=== PATIENT | male | born 1940 | race Caucasian/White ===

== ENCOUNTER 2016-11-15 05:17 | Inpatient (IN) | payer MEDICARE, BC ==
--- NOTE | 2016-11-14 09:40 | PREOPHP ---
DATE OF ADMISSION: 11/15/2016 REFERRING PHYSICIAN: Dr. Hoang Thank you, Dr. Hoang for asking me to see this patient in medical consultation. INTRODUCTION: This is a 75-year-old male scheduled for L1 through L5 diskectomy secondary to severe lumbar spine degenerative disk disease. PAST MEDICAL HISTORY: Significant for history of diabetes mellitus and history of hyperlipidemia and history of prostate carcinoma and a history of degenerative disease and a history of GERD. PAST SURGICAL HISTORY: 1. Significant for L4-L5 diskectomy in 2004. 2. Bilateral inguinal hernia repair. 3. Prostatectomy. 4. Insertion of artificial ureteral sphincter. MEDICATIONS: 1. Simvastatin 20 mg daily. 2. Janumet 50/500 twice a day. 3. Xanax 0.5 p.r.n. ALLERGIES: NO DRUG ALLERGIES. SOCIAL HISTORY: Used to smoke a pack per day for 40 years. Quit in 2005. Alcohol : None. Drugs: None. : 1 child, good health. FAMILY HISTORY: Father at age of 93. Mother at age of 79. She has rheumatic fever and heart problem. One sibling in good health. REVIEW OF SYSTEMS: GENERAL: Denies fever, chills, gaining or losing weight. EYES: Negative for double, blurred vision or eye pain. ENT: Negative for sore throat, ear pain or other congestion. CARDIOVASCULAR: Negative for chest pain, heart palpitation. RESPIRATORY: Negative for shortness of breath, cough, hemoptysis. GASTROINTESTINAL: Negative for nausea, vomiting, constipation, diarrhea, abdominal pain. The patient has history of erosive esophagitis in the past. GENITOURINARY: Negative for dysuria or frequency. The patient has artificial ureteral sphincter status post prostatectomy. HEMATOLOGY: Negative history of easy bruising or bleeding. NEUROLOGIC: Patient denies any history of numbness, tingling, weakness. The patient has history of anxiety. PHYSICAL EXAMINATION: GENERAL: Well-developed, well-nourished male in no acute distress. VITAL SIGNS: Temperature 97.4, heart rate 67, respiratory rate 16, blood pressure 120/70. HEAD: Atraumatic, normocephalic. SKIN: No rash, no lesion, no bruises, no hematoma. NECK: Supple. No lymphadenopathy, no thyromegaly. Negative for jugular venous distention. Negative for carotid bruits. HEENT: Pupils equal, round and react to light and accommodation. Extraocular movements intact. No edema. Ears: Normal tympanic membranes bilaterally. Nose clear. Throat: No erythema, no exudate. HEART: Regular rate and rhythm. Normal S1, normal S2. No S3, no S4, no murmur, no gallops. LUNGS: Clear to auscultation bilaterally. No rash, no wheezes. ABDOMEN: Soft, nontender, nondistended. Positive for bowel sounds. Negative for hepatosplenomegaly. EXTREMITIES: No cyanosis, clubbing or edema. NEUROLOGIC: The patient is alert and oriented x3. Cranial nerves II through VII grossly intact. No motor and sensory deficit. Deep tendon reflexes 2+ bilaterally. LABORATORY DATA: WBC count 10.6, hemoglobin 15.5, hematocrit 45.3, platelets 290. PT 11.3, INR 1.06. PTT 29.3, sodium 138, potassium 5.3. Chloride 104, bicarb 25, BUN 19, creatinine 1.0. Blood sugar 90. AST 18, ALT 22, alkaline phosphatase 75, total bilirubin 0.6. Urinalysis negative for WBC, negative for RBC. Chest x-ray no cardiomegaly. No infiltrates. EKG showed sinus rhythm at rate of 67. No acute ST-T changes. IMPRESSION: 1. A 75-year-old male with diffuse lumbar spine degenerative disk disease. Scheduled for L1 through L5 and diskectomy. 2. History of prostate carcinoma status post prostatectomy. 3. History of artificial ureteral sphincter insertion and history of diabetes mellitus well controlled. 4. History of hyperlipidemia. 5. History of erosive esophagitis in the past. 6. History of tobacco abuse in the past. 7. History of mild anxiety. RECOMMENDATIONS: According to the [employer] the patient possesses mild to moderate risk of perioperative cardiovascular complications. The patient was advised not to take aspirin or nonsteroidal antiinflammatory medications prior to the surgery. The patient needs qualified nurse to insert Madden catheter before the surgery due to presence of artificial sphincter. The patient also has had several episodes of intractable nausea and vomiting postoperatively, which should be addressed by anesthesiologist postoperatively. At this time I will clear this patient for upcoming surgery. DR. YOSI VALDES DICTATING FOR DR. KELSI HOANG. Dictated By: KELSI BLACK/ZACKARY Conf#: [id number] DID#: [id number] [facility]
[2016-11-14 09:56] VITALS: BMI 23.2
[~2016-11-15] VITALS: Ht 182.9 cm; Wt 79.9 kg
[2016-11-15] VITALS (33 sets, daily range): BP systolic 93–138; BP diastolic 58–83; PULSE 56–105; RESP 7–22; Ht 182.9 cm; Wt 79.9 kg
[~2016-11-15 05:17] MED LIST: CEFAZOLIN 2 GM/50 ML (PMX) 50 ML IVPB ONE; LACTATED RINGER'S 1,000 ML IV* SCH
[2016-11-15] MEDS ORDERED: SIMV40TA7 PO (05:40)
[2016-11-15] MEDS ORDERED: ALPR0.5T6 PO (05:40)
[2016-11-15] MEDS ORDERED: SITA1TAB PO (05:40)
[2016-11-15] MEDS ORDERED: POLYMYXIN/BACITRACIN 1L IRRIG ONE (06:40)
[2016-11-15] MEDS ORDERED: BUPIVACAINE 0.25% (MPF) 10 ML 10 ML VIAL ONE (06:40)
[2016-11-15] MEDS ORDERED: ROCURONIUM 50 MG INJ ONE ×2 (07:00→07:47)
[2016-11-15] MEDS ORDERED: SUCCINYLCHOLINE CHLORIDE 100 MG/5 ML SYG IV ONE ×2 (07:00→07:47)
--- NOTE | 2016-11-15 07:01 | HPN ---
Date/Time of Note Date/Time of Note DATE: 11/15/16 TIME: 07:01 Interval H&P Admission Note Pt. seen H&P reviewed: No system changes KELSI MARTIN MD Nov 15, 2016 07:01
[2016-11-15] MEDS ORDERED: METOCLOPRAMIDE 10 MG INJ ONE (07:11)
[2016-11-15] MEDS ORDERED: LIDOCAINE 2% (SDV) 5 ML INJ ONE (07:11)
[2016-11-15] MEDS ORDERED: ONDANSETRON 4 MG INJ ONE (07:11)
[2016-11-15] MEDS ORDERED: PROPOFOL 20 ML ONE (07:11)
[2016-11-15] MEDS ORDERED: MIDAZOLAM 1 MG/ML 2 ML INJ ONE (07:11)
[2016-11-15] MEDS ORDERED: FAMOTIDINE 20 MG INJ ONE (07:12)
[2016-11-15] MEDS ORDERED: FENTAnyl 50 MCG/ML VIAL ONE (07:19)
[2016-11-15] MEDS ORDERED: LABETALOL HCL 20MG INJ ONE (08:07)
[2016-11-15] MEDS ORDERED: PROPOFOL 100 ML ONE ×3 (09:14→09:15)
[2016-11-15] MEDS ORDERED: THROMBIN 5000 UNIT VIAL ONE (09:19)
[2016-11-15] MEDS ORDERED: GELATIN SIZE 100 SPONGE ONE (09:19)
--- NOTE | 2016-11-15 10:03 | RADRPT ---
PROCEDURE: Intraoperative XR. CLINICAL INDICATION: Intraoperative radiograph during L1-L5 decompression/laminectomy. TECHNIQUE: Spot intraoperative lateral lumbar x-ray images were provided. The images were reviewe d on a high-resolution PACS workstation. COMPARISON: None available FINDINGS: Spot intraoperative lateral lumbar views were provided during L1-L5 laminectomy. The images demonst rate instrumentation from L2-L5. IMPRESSION: 1. Spot intraoperative lateral lumbar view during L1-L5 laminectomy were provided. 2. Please see operative report of the same day for further information. RPTAT: DD .Morgan Yepez MD, Date Time Electronically viewed and signed by .Morgan Yepez MD, on 11/15/2016 10:03 .S/
[2016-11-15] MEDS ORDERED: THROMBIN(HUM PLAS)/FIBRINOG/CA 5 ML VIAL TOP ONE (10:27)
[2016-11-15] MEDS ORDERED: FENTAnyl 50 MCG/ML VIAL IV PRN (10:30)
[2016-11-15] MEDS ORDERED: PROCHLORPERAZINE 10 MG INJ IV PRN (10:30)
[2016-11-15] MEDS ORDERED: DIPHENHYDRAMINE 50 MG INJ IV PRN (10:30)
[2016-11-15] MEDS ORDERED: ONDANSETRON 4 MG INJ IV PRN (10:30)
[2016-11-15] MEDS ORDERED: MEPERIDINE 25 MG INJ IV PRN (10:30)
[2016-11-15] MEDS ORDERED: HYDROmorphONE (0.2 MG/ML) 10ML SYG IV PRN (10:30)
[2016-11-15] MEDS ORDERED: HYDROmorphONE 2 MG/ML SYG ONE (10:42)
[2016-11-15] MEDS ORDERED: DEXTROSE 5%-0.45% NACL 1,000 ML IV SCH (11:28)
[2016-11-15] MEDS ORDERED: ACETAMINOPHEN 325 MG TAB PO PRN (11:30)
[2016-11-15] MEDS ORDERED: HYDROmorphONE 0.2 MG/ML PCA IV SCH (11:30)
[2016-11-15] MEDS ORDERED: BETHANECHOL 25 MG TAB PO PRN (11:30)
[2016-11-15] MEDS ORDERED: ZOLPIDEM 5 MG TAB PO PRN (11:30)
[2016-11-15] MEDS ORDERED: NACL 0.9% 3 ML SYG IV SCH (11:30)
[2016-11-15] MEDS ORDERED: DIAZEPAM 5 MG TAB PO PRN (11:30)
[2016-11-15] MEDS ORDERED: TRIMETHOBENZAMIDE 100 MG/ML VIAL IM PRN (11:30)
[2016-11-15] MEDS ORDERED: DIAZEPAM 5 MG/ML SYG IM PRN (11:30)
[2016-11-15] MEDS ORDERED: NALOXONE (0.4 MG/ML) INJ IV PRN (11:30)
[2016-11-15] MEDS ORDERED: HYDROCODONE/APAP (5/325) TAB PO PRN (11:30)
[2016-11-15] MEDS ORDERED: DIPHENHYDRAMINE 50 MG CAP PO PRN (11:30)
[2016-11-15] MEDS ORDERED: PROCHLORPERAZINE 10 MG TAB PO PRN (11:30)
[2016-11-15] MEDS ORDERED: CEPASTAT LOZENGE MT PRN (11:30)
--- NOTE | 2016-11-15 11:41 | OPPN ---
Date/Time of Note Date/Time of Note DATE: 11/15/16 TIME: 11:35 Operative/Procedure Note Pre-Operative Diagnosis Lumbar spinal stenosis at L2-L3-L4 and L5 Status post microdiscectomy L5-S1 on the left with severe foraminal stenosis Post-Operative Diagnosis Same Procedure Central decompressive laminectomy at L2-L3-L4 and L5 Baxano transforaminal root decompression L5 on the left Medial facetectomy and foraminotomy L2-3 L3-4 L4-5 and L5-S1 Revision of scar (14 cm) Lateral localizing lumbar radiograph Intraoperative nerve monitoring (4 hours) Surgeon: KELSI MARTIN MD Slat Basket Maker: KEVIN ARNETT Anesthesiologist: KEV HALL MD Findings Multilevel spinal stenosis at L2-L3-L4 and L5 Blood Usage/Administration None Implants/Grafts: Not applicable Estimated blood loss: 100 - 150 ml's Drains 2 medium Hemovac drains employed Specimens Spinous processes of L2-L3-L4 and L5 Complications: None Anesthesia type: general KELSI MARTIN MD Nov 15, 2016 11:41
[2016-11-15] MEDS ORDERED: HYDROmorphONE 0.2 MG/ML PCA ONE (11:51)
[2016-11-15] MEDS: CEFAZOLIN 1 GM/50 ML (PMX) 50 ML IVPB SCH ×2 (12:15→18:23)
--- NOTE | 2016-11-15 12:31 | OPR ---
DATE OF OPERATION: 11/15/2016 PREOPERATIVE DIAGNOSES: 1. 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 2. Postsurgical changes at L5 on the left. POSTOPERATIVE DIAGNOSES: 1. 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 2. Postsurgical changes at L5 on the left. OPERATION PERFORMED: 1. Central decompressive laminectomy L2. 2. Central decompressive laminectomy at L3. 3. Central decompressive laminectomy at L4. 4. Central decompressive laminectomy at L5 (redo). 5. Baxano transforaminal root decompression L5 on the left. 6. Medial facetectomy and foraminotomy, L2-3, L3-4, L4-5, L5-S1 bilaterally. 7. Revision of scar (14 cm). 8. Lateral localized lumbar radiograph. 9. Intraoperative nerve monitoring (4 hours). SURGEON: Ruiz Hoang MD ENGINEERING DESIGNER: RALPH Sexton ANESTHESIA: General endotracheal. ANESTHESIOLOGIST: Yolanda Apodaca MD ESTIMATED BLOOD LOSS: 100 mL-none replaced. DRAINS: Two medium Hemovac drains employed. COMPLICATIONS: None. PERTINENT HISTORY AND PHYSICAL: This is a 75-year-old male with severe back and bilateral leg pain which has been unrelieved by conservative management. He has undergone a number of diagnostic studi es which demonstrated multilevel spinal stenosis and postsurgical changes at L5 on the left. Treatm ent options were discussed with the patient, who elected to proceed with surgery. OPERATIVE FINDINGS AT SURGERY: Multilevel severe spinal stenosis from L2-L5 was confirmed. Baselin e intraoperative nerve monitoring revealed a decrease in the L2 potentials bilaterally of 10%, the L 3 potentials bilaterally of 40%, the L4 potentials bilaterally of 60%, the left L5 potential of 40%, the right L5 potential of 50%, the left S1 potential of 30% and the right S1 potential of 20%. The se all returned to normal at the completion of surgery. OPERATIVE PROCEDURE: With the patient in supine position after satisfactory induction of general en dotracheal anesthesia by Dr. Apodaca, the patient was turned to the prone kneeling position on the [facility] frame. All pressure points were carefully padded. The back was prepped and draped in usual st erile fashion. Athrombic pumps were applied to the legs below the knees to prevent venous stasis du ring and after procedure. An indwelling Madden catheter was also placed preoperatively by Dr. Tom Hodge as the patient has an artificial sphincter from previous prostate surgery. A 14 cm incisio n then carried out midline from L2 to the sacrum through skin and subcutaneous tissue to the deep fa scia using the previous scar at L5 as an anatomic landmark. Superficial retractors were placed and hemostasis secured with electrocautery, 0.25% Marcaine without epinephrine was used to infiltrate th e skin margins for postoperative analgesia. The fascia was incised in midline with a hot knife and a bilateral subperiosteal dissection carried out from L2 to the sacrum. Deep retractors were placed and deep hemostasis secured with electrocautery. An intraoperative radiograph was taken with Koche r clamps placed in what was felt to be the spinous process of L2, L3, L4, and L5. This was confirme d on the radiograph. A central decompressive laminectomy at L2, L3, L4 and L5 (redo) then carried o ut using a Luis right-angle bone rongeur, Leksell rongeur, Kerrison punches and curettes. The op erating microscope was then moved into place. Medial facetectomy and foraminotomy was then carried out using small hand osteotome, mallet, Kerrison punches and curettes at L2-3, L3-4, L4-5, and L5-S1 bilaterally. At this point, there was still some distal foraminal stenosis at L5 on the left, and the Baxano instrumentation was brought onto the field. The Ipsi probe was placed into the L5 forame n, and the guidewire passed in the usual fashion. The neuro probe was then used to isolate the exit ing L5 nerve root. With this having been accomplished, a 7.5 mm Baxano rasp was then used to enlarg e the posterior aspect of the foramen. The instrumentation was withdrawn. The foramen was flooded with 20 mL of irrigating solution and hemostasis secured with bipolar electrocautery on low setting. The anesthesiologist was asked to perform a Valsalva maneuver at 40 mmHg and no spinal fluid leak was noted. There was; however, small bubble on the dura at L5 on the left where the previous scar t issue had been peeled off of the dura. Although there was no CSF leakage, it was elected to patch t he dural bubble with a 1-inch square of Duragen Plus, covered with Evicel fibrin glue. The wound wa s then closed in layers over 2 medium Hemovac drains, one below the fascia, one above the fascia usi ng #1 Vicryl [id number]-mh-[id number] approximating sutures in deep paralumbar musculature and deep fascia of back, 2-0 Vicryl subcutaneous approximating sutures using #1 Stratafix sutures on the deep paralumb ar musculature and deep fascia of back, 2-0 Stratafix sutures in subcu tissue, and a 4-0 Vicryl subc uticular cosmetic closing suture on the skin, Dermabond and sterile compressive dressings were appli ed. Patient having tolerated procedure well, was then turned to supine position onto his bed and ex tubated by Dr. Apodaca. He was transported to recovery room in satisfactory condition. At the conclus ion of the procedure sponge, instrument and needle counts were all correct. NEED FOR PRODUCT BLENDING SUPERVISOR: During this spinal surgical procedure, my program assistant was used to retrac t and protect the spinal nerves and dural sac. My program assistant also employed the suction catheters to e vacuate blood from the surgical field to improve visualization of the neural structures. The assista nt was medically necessary to facilitate the completion of the surgery in a safe and expeditious man ner. State of [place] regulations, as well as hospital bylaws, preclude the use of non-licensed [facility] care personnel such as operating room technicians, to perform these functions. Throughout the procedure, neural monitoring was carried out by Zapproved Neuroem[employer] including EMG, SSEP and MEP monitoring of the L2, L3, L4, L5, and S1 nerve roots along with spinal c ord potentials. These were interpreted by neurologist employed by [employer]. Dictated By: RUIZ HOANG MD TM/NTS Conf#: [id number] DID#: [id number] CC: ALEXA GATES MD; TOM HODGE MD;*[facility]*
--- NOTE | 2016-11-15 13:16 | CONS ---
DATE OF ADMISSION: 11/15/2016 DATE OF CONSULTATION: MEDICAL CONSULTATION Thank you, Dr. Hoang, for asking me to participate in medical management of this patient. REASON FOR CONSULTATION: To manage the patient's diabetes mellitus and hyperlipidemia. HISTORY OF PRESENT ILLNESS: This 75-year-old man is now in the recovery room after undergoing a lum bar spine surgery by Dr. Hoang. The patient is awake and alert. The patient answers questions a ppropriately. The patient's is at his bedside and is also able to give some history. The ge ent was having low back pain and bilateral hip pain. The patient saw Dr. Hoang for consultation and was found to have advanced degenerative disk disease at the L2-L3 and L5-S1 levels. The patient underwent surgery today by Dr. Hoang, and he had a surgery to relieve multilevel spinal stenosis from L2-L5. He underwent a central decompressive laminectomy at L2, L3, L4, and L5. The patient d id have a prior L4-L5 diskectomy in 2004. PAST MEDICAL HISTORY: Remarkable for type 2 diabetes mellitus, hyperlipidemia, prostate cancer stat us post resection, degenerative disk disease, gastroesophageal reflux disease. PAST SURGICAL HISTORY: L4-L5 diskectomy in 2004, bilateral inguinal hernia repair, prostatectomy, i nsertion of an artificial ureteral sphincter. He did have an abdominal surgery several months ago f or what turned out to be a benign tumor in the gallbladder area. CURRENT MEDICATIONS: 1. Simvastatin 40 mg a day. 2. Janumet 50/500 twice a day. 3. Xanax 0.5 mg p.o. at bedtime p.r.n. sleep. ALLERGIES: THE PATIENT HAS NO KNOWN DRUG ALLERGIES. SOCIAL HISTORY: The patient smoked for 40 years, but quit in 2005. He does not drink alcohol, does not use illicit drugs. The patient is with 1 child. FAMILY HISTORY: Both parents are . Father at age 93. Mother at age 79. She had a history of rheumatic fever and heart disease. He has one sibling in good health. PHYSICAL EXAMINATION: GENERAL: At this time reveals a well-developed man who is awake and alert. He seems comfortable. VITAL SIGNS: Pulse of 84, respirations are 8, blood pressure 111/66, O2 saturation 95% on 3 L nasal cannula. HEENT: Head normocephalic. EYES: Extraocular muscles intact. NOSE AND MOUTH: Normal. NECK: Supple. No neck vein distention. LUNGS: Clear to auscultation. HEART: Regular rhythm. No murmurs, gallops, or rubs. ABDOMEN: Soft, nontender. EXTREMITIES: No peripheral edema. IMPRESSION: This patient is now in the recovery room after undergoing a lumbar spine surgery. He i s awake and alert and his pain is controlled on current medications. I will manage the patient's di abetes mellitus, hyperlipidemia, gastroesophageal reflux disease. PLAN: 1. Resume some routine medications. 2. Check labs in the morning. 3. Sliding scale insulin coverage for today. Postop lumbar spine surgery protocol. 4. I will follow the patient along with you. Dictated By: ALEXA GATES MD, ND/ZACKARY Conf#: [id number] DID#: [id number]
[2016-11-15] MEDS ORDERED: DEXTROSE 50% 50 ML SYRINGE IV PRN ×2 (13:30)
[2016-11-15] MEDS ORDERED: GLUCAGON 1 MG INJ IM PRN (13:30)
[2016-11-15] MEDS ORDERED: GLUCOSE GEL 15 GRAM TUBE PO PRN ×2 (13:30)
[2016-11-15] MEDS ORDERED: GLUCOSE GEL 15 GRAM TUBE BUCCAL PRN (13:30)
--- NOTE | 2016-11-15 14:07 | CONS ---
DATE OF ADMISSION: 11/15/2016 DATE OF CONSULTATION: 11/15/2016 TYPE OF CONSULTATION: Urological. REQUESTING PHYSICIAN: Dr. Hoang. Dear Dr. Hoang, thank you for asking me to see this patient in urological consultation. HISTORY OF PRESENT ILLNESS: As you know, he is a 75-year-old male who had a history of prostate can cer, underwent a radical prostatectomy and because of that, he had urinary incontinence and had an a rtificial urinary sphincter inserted. The patient is scheduled to have surgery today and needed to an indwelling Madden catheter. A urological consultation was requested to make sure that the sphinct er is deactivated properly and insertion of a catheter and trying to avoid any urethral injury. The patient was seen in the operating room and the sphincter was deactivated and then a 16-[place] Madden catheter was inserted without any problem and clear urine was drained. PAST MEDICAL HISTORY: The patient's past other significant medical history included a history of ty pe 2 diabetes, hyperlipidemia, degenerative disk disease and gastroesophageal reflux disease. PAST SURGICAL HISTORY: He has had a diskectomy in 2004, L4-L5, bilateral inguinal hernia repair, ra dical retropubic prostatectomy and insertion of AMS artificial urinary sphincter. He also did have abdominal surgery for a benign tumor in the gallbladder area. HOME MEDICATIONS: His medications at home included: 1. Simvastatin. 2. Janumet. 3. Xanax. SOCIAL HISTORY: The patient does not drink any alcohol, and there is no history of drug abuse. He did smoke for 40 years. He quit in 2005. FAMILY HISTORY: Both parents are . Father at age 93. Mother at age 79. She has had a history of rheumatic fever and heart disease. PHYSICAL EXAMINATION: GENERAL: Reveals an elderly male. He weighs 79.9 kilograms, is 72 inches tall and when seen in the operating room, certainly no general exam was done. ABDOMEN: Soft. EXTERNAL GENITALIA: He was dripping urine from his penis because of incontinence. The artificial s phincter pump was located in the right side of the scrotum. It was deactivated and then the penis was prepped and draped in the usual sterile manner. A #16 [place] Madden catheter was inserted and co nnected to a drainage bag. LABORATORY DATA: Shows there are all in the chart and they are within normal limits. IMPRESSION: History of prostate cancer, status post radical retropubic prostatectomy and urinary in continence. Patient has artificial urinary sphincter. PLAN: To deactivate the sphincter, insertion of Madden catheter and that was done and we shall keep the Madden catheter in until tomorrow maybe, and then I will take the Madden catheter out and reactiva te the sphincter. Dictated By: TONI GEORGE/ZACKARY Conf#: [id number] DID#: [id number]
[2016-11-15] MEDS: SOD CHLORIDE 0.45% 1,000 ML IV SCH (16:30)
[2016-11-15] MEDS: INSULIN ASPART [NOVOLOG] 3 ML PEN SC SCH ×2 (17:35→21:00)
[2016-11-15] MEDS: RANITIDINE 150 MG TAB PO SCH (21:14)
[2016-11-15] MEDS: ALPRAZOLAM 0.5 MG TAB PO SCH (21:14)
[2016-11-15] MEDS: ATORVASTATIN 20 MG TAB PO SCH (21:14)
[2016-11-15] MEDS: ONDANSETRON 4 MG INJ IV PRN (21:19)
[2016-11-16] VITALS (18 sets, daily range): BP systolic 91–147; BP diastolic 48–82; PULSE 80–105; RESP 13–28
[2016-11-16] MEDS: CEFAZOLIN 1 GM/50 ML (PMX) 50 ML IVPB SCH ×2 (00:59→05:42)
[2016-11-16] MEDS: SOD CHLORIDE 0.45% 1,000 ML IV SCH (01:51)
[2016-11-16] MEDS: ACCUCHECK XX SCH ×2 (02:00→21:52)
[2016-11-16] MEDS: ONDANSETRON 4 MG INJ IV PRN (04:03)
[2016-11-16 05:14] LABS: BASOPHILS % 0.2 % (0.0-2.0); EOSINOPHILS # 0.1 10^3/ul (0.0-0.5); EOSINOPHILS % 0.5 % (0.0-7.0); HEMATOCRIT 35.5 % (42.0-52.0); HEMOGLOBIN 11.7 g/dl (14.0-18.0); LYMPHOCYTES # 1.2 10^3/ul (0.8-2.9); LYMPHOCYTES % 6.9 % (15.0-51.0); MEAN CORPUSCULAR HEMOGLOBIN 28.7 pg (29.0-33.0); MEAN CORPUSCULAR HGB CONC 32.9 g/dl (32.0-37.0); MEAN CORPUSCULAR VOLUME 87.2 fl (82.0-101.0); MEAN PLATELET VOLUME 8.3 fl (7.4-10.4); MONOCYTE # 1.4 10^3/ul (0.3-0.9); MONOCYTES % 8.7 % (0.0-11.0); NEUTROPHIL # 13.9 10^3/ul (1.6-7.5); NEUTROPHILS % 83.7 % (39.0-77.0); PLATELET COUNT 254 10^3/UL (140-440); RED BLOOD COUNT 4.07 10^6/ul (4.70-6.10); RED CELL DISTRIBUTION WIDTH 13.9 % (11.5-14.5); UNCORRECTED WBC 16.6 10^3/ul (4.8-10.8); WHITE BLOOD COUNT 16.6 10^3/ul (4.8-10.8)
[2016-11-16 05:34] LABS: CONDITION 1
[2016-11-16 05:38] LABS: ALBUMIN 2.9 g/dl (3.3-4.9)
[2016-11-16 05:39] LABS: POTASSIUM 4.2 mmol/L (3.5-5.1)
[2016-11-16 05:41] LABS: BILIRUBIN,INDIRECT 0.5 mg/dl (0-1.1); BILIRUBIN,TOTAL 0.5 mg/dl (0.2-1.3); CREATININE 1.02 mg/dl (0.61-1.24)
[2016-11-16 05:42] LABS: ALBUMIN/GLOBULIN RATIO 1.16; CALCIUM 8.2 mg/dl (8.4-10.2); TOTAL PROTEIN 5.4 g/dl (6.1-8.1)
--- NOTE | 2016-11-16 07:15 | PN ---
Date/Time of Note Date/Time of Note DATE: 11/16/16 TIME: 07:14 Assessment/Plan Lines/Catheters IV Catheter Type (from Nrsg): Peripheral IV Madden in Place (from Nrsg): Yes (FROM OR) Subjective 24 Hr Interval Summary The patient is postop day #1 following multilevel decompressive laminectomy from L2-L5. He is resting comfortably. His vital signs are stable. Examination reveals neurovascular structures to be intact distally. His morning labs are unremarkable. He will be transferred to the orthopedic floor pending medical clearance by Dr. Prasad. Physical therapy will be seeing him 3-4 times today for walker ambulation training. He will be discharged home when cleared by Dr. Prasad and physical therapy. His Madden will be managed by Dr. Croft. Exam/Review of Systems Vital Signs Vitals Vital Signs Date Time Temp Pulse Resp B/P Pulse Ox O2 Delivery O2 Flow Rate FiO2 11/16/16 06:28 20 11/16/16 06:00 95 102/57 95 Nasal Cannula 3.0 11/16/16 04:00 98.4 Intake and Output 11/15/16 11/15/16 11/16/16 15:00 23:00 07:00 Intake Total 1350 ml 1290 ml 550 ml Output Total 510 ml 435 ml 755 ml Balance 840 ml 855 ml -205 ml Results Result Diagram: 11/16/1639911/16/16399 KELSI MARTIN MD Nov 16, 2016 07:15
[2016-11-16] MEDS: INSULIN ASPART [NOVOLOG] 3 ML PEN SC SCH ×4 (07:35→20:57)
[2016-11-16] MEDS ORDERED: BETHANECHOL 25 MG TAB PO PRN (08:00)
--- NOTE | 2016-11-16 09:28 | CONS ---
Date/Time of Note Date/Time of Note DATE: 11/16/16 TIME: 09:22 Assessment/Plan Assessment/Plan Chief Complaint/Hosp Course 1. he is 1 day post op a lumbar spine surgery . he is doing well 2. blood sugar is well controlled 3. he can transfer to ortho floor . will continue current medication . Problems: Consultation Date/Type/Reason Admit Date/Time Nov 15, 2016 at 05:17 Initial Consult Date Type of Consultation: medicine 24 HR Interval Summary Free Text/Dictation He is 1 day post op a lumbar spine surgery . his pain is controlled Constitutional: no complaints Exam/Review of Systems Vital Signs Vitals Vital Signs Date Time Temp Pulse Resp B/P Pulse Ox O2 Delivery O2 Flow Rate FiO2 11/16/16 08:00 85 13 111/69 96 Room Air 11/16/16 07:00 98.8 11/16/16 06:00 3.0 Intake and Output 11/15/16 11/15/16 11/16/16 15:00 23:00 07:00 Intake Total 1350 ml 1290 ml 550 ml Output Total 510 ml 435 ml 755 ml Balance 840 ml 855 ml -205 ml Exam Constitutional: alert, oriented, well developed Psych: nl mood/affect, no complaints Respiratory: clear to auscultation, normal air movement Cardiovascular: regular rate and rhythm Gastrointestinal: soft Musculoskeletal: nl extremities to inspection Results Result Diagram: 11/16/16 0400 11/16/16 0400 Results 24 hrs Laboratory Tests Test 11/15/16 11:27 11/15/16 18:19 11/15/16 21:12 11/16/16 04:00 Bedside Glucose 134 122 134 Alanine Aminotransferase (ALT/SGPT) 36 Albumin 2.9 L Albumin/Globulin Ratio 1.16 Alkaline Phosphatase 68 Anion Gap 15 Aspartate Amino Transf (AST/SGOT) 26 Basophils # 0.0 Basophils % 0.2 Blood Morphology Comment Blood Urea Nitrogen 15 Calcium Level 8.2 L Carbon Dioxide Level 24 Chloride Level 102 Creatinine 1.02 Direct Bilirubin 0.00 Eosinophils # 0.1 Eosinophils % 0.5 Globulin 2.50 Glucose Level 122 Hematocrit 35.5 L Hemoglobin 11.7 L Indirect Bilirubin 0.5 Lymphocytes # 1.2 Lymphocytes % 6.9 L Mean Corpuscular Hemoglobin 28.7 L Mean Corpuscular Hemoglobin Concent 32.9 Mean Corpuscular Volume 87.2 Mean Platelet Volume 8.3 Monocytes # 1.4 H Monocytes % 8.7 Neutrophils # 13.9 H Neutrophils % 83.7 H Nucleated Red Blood Cells # 0.0 Nucleated Red Blood Cells % 0.0 Platelet Count 254 Potassium Level 4.2 Red Blood Count 4.07 L Red Cell Distribution Width 13.9 Sodium Level 137 Total Bilirubin 0.5 Total Protein 5.4 L White Blood Count 16.6 H Medications Medications Current Medications Lactated Ringer's (Lr) 1,000 ml @ 25 mls/hr Q24H IV* Last administered on 16:30; Admin Dose 25 MLS/HR; Start 11/15/16 at 05:00; Stop 11/16/16 at 20:59 Acetaminophen/ Hydrocodone Bitart ([place] (5/325)) 1 tab Q4H PRN PO PAIN LEVEL 1 -5; Start 11/15/16 at 11:30 Acetaminophen/ Hydrocodone Bitart ([place] (5/325)) 2 tab Q4H PRN PO PAIN LEVEL 6 -10; Start 11/15/16 at 11:30 Zolpidem Tartrate (Ambien) 5 mg HS PRN PO INSOMNIA; Start 11/15/16 at 11:30 Prochlorperazine (Compazine) 10 mg Q4H PRN PO NAUSEA AND/OR VOMITING Last administered on 11/16/16 08:03; Admin Dose 10 MG; Start 11/15/16 at 11:30 Trimethobenzamide HCl (Tigan) 200 mg Q4H PRN IM NAUSEA AND/OR VOMITING; Start 11/15/16 at 11:30 Ondansetron HCl (Zofran Inj) 4 mg Q6H PRN IV NAUSEA AND/OR VOMITING Last administered on 11/16/16 04:03; Admin Dose 4 MG; Start 11/15/16 at 11:30 Al Hydrox/Mg Hydrox/Simethicone (Mag-Al Plus) 15 ml Q4H PRN PO CONSTIPATION; Start 11/15/16 at 11:30 Docusate Sodium (Colace) 100 mg BID PO ; Start 11/16/16 at 09:00 Acetaminophen (Tylenol Tab) 650 mg Q4H PRN PO TEMP GREATER THAN 101F OR CURRIE; Start 11/15/16 at 11:30 Ascorbic Acid (Vitamin C) 1,000 mg BID PO ; Start 11/16/16 at 09:00 Ferrous Sulfate (Ferrous Sulfate (Ec)) 325 mg TID PO ; Start 11/16/16 at 09:00 Ranitidine HCl (Zantac) 150 mg BID PO Last administered on 11/15/16 21:14; Admin Dose 150 MG; Start 11/15/16 at 21:00 Diazepam (Valium) 5 mg Q4H PRN PO MUSCLE SPASMS; Start 11/15/16 at 11:30 Diazepam (Valium) 5 mg Q4H PRN IM MUSCLE SPASMS; Start 11/15/16 at 11:30 Phenol (Cepastat Lozenge) 1 lozenge PRN PRN MT SORE THROAT; Start 11/15/16 at 11 :30 Diphenhydramine HCl (Benadryl) 50 mg Q6H PRN PO PRURITUS; Start 11/15/16 at 11: 30 Hydromorphone HCl (Dilaudid [employer]) Q4PCA IV Last administered on 11/15/16 12:08 ; Admin Dose 6 MG; Start 11/15/16 at 11:30 Naloxone HCl (Narcan) 0.2 mg Q2M PRN IV RR 8 BREATHS/MIN OR LESS; Start at 11:30 Alprazolam (Xanax) 0.5 mg HS PO Last administered on 11/15/16 21:14; Admin Dose 0.5 MG; Start 11/15/16 at 21:00 Atorvastatin Calcium (Lipitor) 20 mg DAILY@21 PO Last administered on 11/15/16 21:14; Admin Dose 20 MG; Start 11/15/16 at 21:00 Diagnostic Test (Pha) (Accucheck) 1 ea 02 XX ; Start 11/16/16 at 02:00 Miscellaneous Information 1 ea NOTE XX ; Start 11/15/16 at 13:30 Glucose (Glutose) 15 gm Q15M PRN PO DECREASED GLUCOSE; Start 11/15/16 at 13:30 Glucose (Glutose) 22.5 gm Q15M PRN PO DECREASED GLUCOSE; Start 11/15/16 at 13:30 Dextrose (D50w Syringe) 25 ml Q15M PRN IV DECREASED GLUCOSE; Start 11/15/16 at 13:30 Dextrose (D50w Syringe) 50 ml Q15M PRN IV DECREASED GLUCOSE; Start 11/15/16 at 13:30 Glucagon (Glucagen) 1 mg Q15M PRN IM DECREASED GLUCOSE; Start 11/15/16 at 13:30 Glucose (Glutose) 15 gm Q15M PRN BUCCAL DECREASED GLUCOSE; Start 11/15/16 at 13: 30 Bethanechol Chloride (Urecholine) 25 mg PRN PRN PO UNABLE TO VOID; Start at 08:00 ALEXA GATES MD Nov 16, 2016 09:28
[2016-11-16] MEDS: ASCORBIC ACID 500 MG TAB PO SCH ×2 (09:30→20:19)
[2016-11-16] MEDS: RANITIDINE 150 MG TAB PO SCH ×2 (09:31→20:20)
[2016-11-16] MEDS: HYDROCODONE/APAP (5/325) TAB PO PRN ×3 (09:31→19:53)
[2016-11-16] MEDS: FERROUS SULFATE (EC) 325 MG TAB PO SCH ×3 (09:31→20:20)
[2016-11-16] MEDS: DOCUSATE SODIUM 100 MG CAP PO SCH ×2 (09:31→20:20)
[2016-11-16] MEDS: AL HYDROX/MG HYDROX/SIMETH 30 ML CUP PO PRN (16:00)
--- NOTE | 2016-11-16 19:52 | PN ---
DATE: 11/16/2016 SUBJECTIVE: Urinary incontinence. The patient has AMS artificial urinary sphincter, and the patien t had an indwelling Madden catheter. The artificial sphincter was deactivated prior to surgery, and a Madden catheter was inserted, and today he came in and the patient was ready to have the catheter r emoved, so we deflated the balloon and pulled the catheter gently and slowly and came out without an y problem. Then, I activated the urinary sphincter as recommended by the instruction of the company , and the patient was dry for about 3 hours, then all of a sudden he felt urine coming out. Then I came back this evening and tried to activate the sphincter again, and again following the instructio ns, and it appears that also the diaper that he had was somehow wet, but I again activated it, and t here was no dripping from the penis after that, so we will watch it overnight and then check on him in the morning. Hopefully, the deactivation is successful, and we will check on it again later on. Dictated By: TONI GEORGE/ZACKARY Conf#: [id number] DID#: [id number]
[2016-11-16] MEDS: ATORVASTATIN 20 MG TAB PO SCH (20:20)
[2016-11-16] MEDS: ALPRAZOLAM 0.5 MG TAB PO SCH (20:20)
[2016-11-17] VITALS: BP 139/68; RESP 18
[2016-11-17 05:00] VITALS: BP 121/59; PULSE 81; RESP 18
[2016-11-17] MEDS: HYDROCODONE/APAP (5/325) TAB PO PRN (06:42)
[2016-11-17] MEDS: AL HYDROX/MG HYDROX/SIMETH 30 ML CUP PO PRN (06:48)
--- NOTE | 2016-11-17 07:08 | PN ---
Date/Time of Note Date/Time of Note DATE: 11/17/16 TIME: 07:06 Assessment/Plan Lines/Catheters IV Catheter Type (from Nrsg): Saline Lock Madden in Place (from Nrsg): No Subjective 24 Hr Interval Summary The patient is postop day #2 following a multilevel decompressive laminectomy. He is having significant back pain not controlled by [place]. His vital signs are stable. His examination reveals neurovascular structures to be intact distally. He has not moved his bowels since surgery. I will switch him from [place] to Percocet for pain control, and begin a bowel program consisting of a Dulcolax suppository. If the suppository is not effective we will provide him with a fleets enema. If he is cleared for discharge by physical therapy later today, he may be able to go home. Discharge instructions and precautions have been provided. Exam/Review of Systems Vital Signs Vitals Vital Signs Date Time Temp Pulse Resp B/P Pulse Ox O2 Delivery O2 Flow Rate FiO2 11/17/16 05:00 98.2 81 18 121/59 97 Room Air 11/16/16 06:00 3.0 Intake and Output 11/16/16 11/16/16 11/17/16 15:00 23:00 07:00 Intake Total 400 ml 400 ml 950 ml Output Total 600 ml 900 ml Balance -200 ml 400 ml 50 ml Results Result Diagram: 11/16/1639911/16/16399 KELSI MARTIN MD Nov 17, 2016 07:07
[2016-11-17] MEDS ORDERED: BISACODYL 10 MG SUPP PR ONE (07:30)
[2016-11-17] MEDS ORDERED: OXYCODONE/ACETAMINOPHEN (5/325) TAB PO PRN (07:30)
[2016-11-17] MEDS ORDERED: NA PHOSPHATE/BIPHOS 133 ML ENEMA PR ONE (07:30)
[2016-11-17] MEDS: INSULIN ASPART [NOVOLOG] 3 ML PEN SC SCH (07:50)
[2016-11-17 08:26] VITALS: BP 145/76; RESP 16
[2016-11-17] MEDS: RANITIDINE 150 MG TAB PO SCH (09:01)
[2016-11-17] MEDS: ASCORBIC ACID 500 MG TAB PO SCH (09:01)
[2016-11-17] MEDS: OXYCODONE/ACETAMINOPHEN (5/325) TAB PO PRN ×2 (09:01→12:01)
[2016-11-17] MEDS: FERROUS SULFATE (EC) 325 MG TAB PO SCH (09:01)
[2016-11-17] MEDS: DOCUSATE SODIUM 100 MG CAP PO SCH (09:01)
--- NOTE | 2016-11-17 10:44 | CONS ---
Date/Time of Note Date/Time of Note DATE: 11/17/16 TIME: 10:40 Assessment/Plan Assessment/Plan Chief Complaint/Hosp Course 1. he is 2 days post op a lumbar spine surgery . he is doing well 2. blood sugar is well controlled 3. will continue current medication . he can be discharged if cleared by PT . Problems: Consultation Date/Type/Reason Admit Date/Time Nov 15, 2016 at 05:17 Type of Consultation: medicine 24 HR Interval Summary Free Text/Dictation He is now 2 days post op a lumbar spine surgery . He is having some low back pain . Exam/Review of Systems Vital Signs Vitals Vital Signs Date Time Temp Pulse Resp B/P Pulse Ox O2 Delivery O2 Flow Rate FiO2 11/17/16 08:26 97.9 89 16 145/76 94 11/17/16 05:00 Room Air 11/16/16 06:00 3.0 Intake and Output 11/16/16 11/16/16 11/17/16 15:00 23:00 07:00 Intake Total 400 ml 400 ml 950 ml Output Total 600 ml 900 ml Balance -200 ml 400 ml 50 ml Exam Constitutional: alert, oriented, well developed Psych: nl mood/affect, no complaints Respiratory: clear to auscultation, normal air movement Cardiovascular: regular rate and rhythm Gastrointestinal: soft Musculoskeletal: nl extremities to inspection Results Result Diagram: 11/16/16 0400 11/16/16 0400 Results 24 hrs Laboratory Tests Test 11/16/16 12:55 11/16/16 17:14 11/16/16 20:07 11/17/16 07:42 Bedside Glucose 111 112 143 131 Medications Medications Current Medications Zolpidem Tartrate (Ambien) 5 mg HS PRN PO INSOMNIA; Start 11/15/16 at 11:30 Prochlorperazine (Compazine) 10 mg Q4H PRN PO NAUSEA AND/OR VOMITING Last administered on 11/16/16 08:03; Admin Dose 10 MG; Start 11/15/16 at 11:30 Trimethobenzamide HCl (Tigan) 200 mg Q4H PRN IM NAUSEA AND/OR VOMITING; Start 11/15/16 at 11:30 Ondansetron HCl (Zofran Inj) 4 mg Q6H PRN IV NAUSEA AND/OR VOMITING Last administered on 11/16/16 04:03; Admin Dose 4 MG; Start 11/15/16 at 11:30 Al Hydrox/Mg Hydrox/Simethicone (Mag-Al Plus) 15 ml Q4H PRN PO CONSTIPATION Last administered on 11/17/16 06:48; Admin Dose 15 ML; Start 11/15/16 at 11:30 Docusate Sodium (Colace) 100 mg BID PO Last administered on 11/17/16 09:01; Admin Dose 100 MG; Start 11/16/16 at 09:00 Acetaminophen (Tylenol Tab) 650 mg Q4H PRN PO TEMP GREATER THAN 101F OR CURRIE; Start 11/15/16 at 11:30 Ascorbic Acid (Vitamin C) 1,000 mg BID PO Last administered on 11/17/16 09:01 ; Admin Dose 1,000 MG; Start 11/16/16 at 09:00 Ferrous Sulfate (Ferrous Sulfate (Ec)) 325 mg TID PO Last administered on 09:01; Admin Dose 325 MG; Start 11/16/16 at 09:00 Ranitidine HCl (Zantac) 150 mg BID PO Last administered on 11/17/16 09:01; Admin Dose 150 MG; Start 11/15/16 at 21:00 Diazepam (Valium) 5 mg Q4H PRN PO MUSCLE SPASMS Last administered on 11/16/16 19:53; Admin Dose 5 MG; Start 11/15/16 at 11:30 Diazepam (Valium) 5 mg Q4H PRN IM MUSCLE SPASMS; Start 11/15/16 at 11:30 Phenol (Cepastat Lozenge) 1 lozenge PRN PRN MT SORE THROAT Last administered on 11/16/16 21:56; Admin Dose 5 LOZENGE; Start 11/15/16 at 11:30 Diphenhydramine HCl (Benadryl) 50 mg Q6H PRN PO PRURITUS Last administered on 12:53; Admin Dose 50 MG; Start 11/15/16 at 11:30 Naloxone HCl (Narcan) 0.2 mg Q2M PRN IV RR 8 BREATHS/MIN OR LESS; Start at 11:30 Alprazolam (Xanax) 0.5 mg HS PO Last administered on 11/16/16 20:20; Admin Dose 0.5 MG; Start 11/15/16 at 21:00 Atorvastatin Calcium (Lipitor) 20 mg DAILY@21 PO Last administered on 11/16/16 20:20; Admin Dose 20 MG; Start 11/15/16 at 21:00 Diagnostic Test (Pha) (Accucheck) 1 ea 02 XX ; Start 11/16/16 at 02:00 Miscellaneous Information 1 ea NOTE XX ; Start 11/15/16 at 13:30 Glucose (Glutose) 15 gm Q15M PRN PO DECREASED GLUCOSE; Start 11/15/16 at 13:30 Glucose (Glutose) 22.5 gm Q15M PRN PO DECREASED GLUCOSE; Start 11/15/16 at 13:30 Dextrose (D50w Syringe) 25 ml Q15M PRN IV DECREASED GLUCOSE; Start 11/15/16 at 13:30 Dextrose (D50w Syringe) 50 ml Q15M PRN IV DECREASED GLUCOSE; Start 11/15/16 at 13:30 Glucagon (Glucagen) 1 mg Q15M PRN IM DECREASED GLUCOSE; Start 11/15/16 at 13:30 Glucose (Glutose) 15 gm Q15M PRN BUCCAL DECREASED GLUCOSE; Start 11/15/16 at 13: 30 Bethanechol Chloride (Urecholine) 25 mg PRN PRN PO UNABLE TO VOID; Start at 08:00 Oxycodone/ Acetaminophen (Percocet (5/ 325)) 1 tab Q4H PRN PO PAIN LEVEL 1-5; Start 11/17/16 at 07:30 Oxycodone/ Acetaminophen (Percocet (5/ 325)) 2 tab Q4H PRN PO PAIN LEVEL 6-10 Last administered on 11/17/16 09:01; Admin Dose 2 TAB; Start 11/17/16 at 07:30 ALEXA GATES MD Nov 17, 2016 10:44
[2016-11-17] MEDS ORDERED: metFORMIN 500 MG TAB PO SCH (17:55)
--- NOTE | 2016-11-18 07:24 | PN ---
DATE: 11/17/2016 SUBJECTIVE: The patient is with a history of prostate cancer, status post radical prostatectomy and insertion of an artificial sphincter. The patient at the time of the surgery had the sphincter lucia ctivated and then had a Madden catheter put in, and the first day postop I removed the Madden catheter . I then activated the sphincter; however, during the day the patient did have a problem with incon tinence. So I came back yesterday evening and again reactivated it the second time, and apparently during the whole night he was okay and the sphincter is back working as it was prior to his surgery. Therefore when I saw him this morning he was happy and dry and has no complaint. Dictated By: TONI GEORGE/ZACKARY Conf#: [id number] DID#: [id number]
--- NOTE | 2016-11-20 09:32 | DS ---
Date/Time of Note Date/Time of Note DATE: 11/20/16 TIME: 09:30 Discharge Summary Admission/Discharge Info Admit Date/Time Nov 15, 2016 at 05:17 Discharge Date/Time Nov 17, 2016 at 12:20 Final Diagnosis 1. 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 2. Postsurgical changes at L5 on the left. Patient Condition: Fair Hospital Course Pt did well during his hospital stay. Pain medications were adjusted prior to discharge. His diet and activity were advanced as tolerated. He was able to have a bowel movement prior to d/c. He was discharged to home in good condition on POD #2 Home Meds Reported Medications Sitagliptin Phos/Metformin HCl (Janumet 50-500 mg Tablet) 1 Each Tablet, 1 TAB PO BID, #180 11/15/16 Simvastatin (Simvastatin) 40 Mg Tablet, 40 MG PO DAILY, #90 11/15/16 Alprazolam* (Alprazolam*) 0.5 Mg Tablet, 0.5 MG PO HS, #90 11/15/16 Follow-up Plan Follow up with Dr. Hoang in 2 weeks. AME MARIE Nov 20, 2016 09:32
== END 2016-11-17 12:20 | disposition home or self-care (01) | DRG 517 ==
LOC: REC 05:17 → ICU 16:25 → MS1 11-16 15:50
PROVIDERS: ADMIT Orthopaedic Surgery; ATTEND Orthopaedic Surgery
PROC: 4A11X4G Monitoring of Peripheral Nervous Electrical Activity, Intraoperative, External Approach (ICD-10-PCS; 2016-11-15)
PROC: 01NB0ZZ Release Lumbar Nerve, Open Approach (ICD-10-PCS; principal; 2016-11-15 07:00)
DX: M48.06 Spinal stenosis, lumbar region (principal); E11.9 Type 2 diabetes mellitus without complications; M51.36 Other intervertebral disc degeneration, lumbar region; M51.37 Other intervertebral disc degeneration, lumbosacral region; E78.5 Hyperlipidemia, unspecified; K21.9 Gastro-esophageal reflux disease without esophagitis; R32 Unspecified urinary incontinence; Z96.89 Presence of other specified functional implants; Z98.890 Other specified postprocedural states; Z85.46 Personal history of malignant neoplasm of prostate; Z87.891 Personal history of nicotine dependence
CPT/HCPCS: 72020; 80053; 82962; 85025; 86850; 86900; 86901; 86920; 87081; 87086; 88304; 88311; 97116; 97162; 97530; C9250; J0330; J0690; J1170; J1815; J2250; J2405; J2765; J3010; J7120